=== PATIENT | female | born 1960 | race African-American/Black ===

== ENCOUNTER 2019-02-23 14:54 | Emergency (ER) | payer MEDICARE, MEDICAID ==
[~2019-02-23] VITALS: Ht 167.6 cm; Wt 79.0 kg
[~2019-02-23 14:54] MED LIST: AMIT25TA9 PO; AMLO10TA80 PO; AMLO2.5T2 PO; ATOR20TA65 PO; CARV3.1242 PO; CIPR-263 PO; COR3 PO; DIGO250T4 PO; ESOM20CA PO; HYDR12.529 PO; LISI2.5T47 PO; LISI40TA4 PO; OMEP20TA2 PO; OXYC30TA89 PO; PERFORMIST
[2019-02-23] MEDS ORDERED: IBUPROFEN 600MG TABLET PO STA (15:14)
[2019-02-23] MEDS ORDERED: ALBUTEROL (0.083%) 2.5MG/3ML NEB HHN ONE (15:15)
[2019-02-23] MEDS ORDERED: ALBUTEROL (0.083%) 2.5MG/3ML NEB ONE (15:29)
[2019-02-23 16:06] LABS: EOSINOPHILS % 2.8 % (0.0-5.0); HEMATOCRIT. 40.7 % (36.0-48.0); LYMPHOCYTES % 39.1 % (20.0-50.0); MEAN CORPUSCULAR HEMOGLOBIN 28.5 pg (28.0-32.0); MEAN CORPUSCULAR VOLUME 82.8 fL (81.0-99.0); MEAN PLATELET VOLUME 8.5 fl (7.4-10.4); NEUTROPHILS % 46.1 % (40.0-76.0); PLATELET 254 x1000/uL (130-400); RED BLOOD CELL COUNT 4.92 mill/uL (4.2-5.4)
[2019-02-23 16:12] LABS: CHLORIDE 103 mEq/L (98-107)
[2019-02-23] MEDS ORDERED: POTASSIUM CHLORIDE 20MEQ TABLET SR PO ONE ×2 (16:30→16:45)
[2019-02-23 16:54] VITALS: BP 168/88
[2019-02-24] MEDS ORDERED: FLUT1AER IH (14:02)
[2019-02-24] MEDS ORDERED: SPIR1TAB4 MT (14:02)
[2019-02-24] MEDS ORDERED: COLC0.6C3 MT (14:02)
[2019-02-24] MEDS ORDERED: VERA120T13 MT (14:02)
[2019-02-24] MEDS ORDERED: ESCI20TA36 MT (14:02)
[2019-02-24] MEDS ORDERED: MECL-127 MT (14:02)
[2019-02-24] MEDS ORDERED: ACLI400A3 INH (14:02)
[2019-02-24] MEDS ORDERED: OLME1TAB40 MT (14:02)
[2019-02-24] MEDS ORDERED: CYCL15CA PO (14:02)
[2019-02-24] MEDS ORDERED: FURO20TA4 MT (14:02)
== END 2019-02-23 17:26 | disposition home or self-care (01) ==
LOC: ER 14:54
DX: J44.9 Chronic obstructive pulmonary disease, unspecified (principal); R51 Headache; E87.6 Hypokalemia; I11.0 Hypertensive heart disease with heart failure; I50.9 Heart failure, unspecified; Z79.899 Other long term (current) drug therapy; Z88.0 Allergy status to penicillin; Z88.1 Allergy status to other antibiotic agents
CPT/HCPCS: 36415; 71045; 80053; 85025; 93005; 94640; 99284; J7611

== ENCOUNTER 2019-03-13 18:27 | Emergency (ER) | payer MEDICARE, MEDICAID ==
[~2019-03-13] VITALS: Ht 172.7 cm; Wt 100.0 kg
[~2019-03-13 18:27] MED LIST changes: +ACLI400A3 INH; -AMLO2.5T2 PO; -CARV3.1242 PO; -CIPR-263 PO; +COLC0.6C3 MT; +CYCL15CA PO; -DIGO250T4 PO; +ESCI20TA36 MT; -ESOM20CA PO; +FLUT1AER IH; +FURO20TA4 MT; -HYDR12.529 PO; -LISI40TA4 PO; +MECL-127 MT; +OLME1TAB40 MT; +SPIR1TAB4 MT; +VERA120T13 MT
[2019-03-13] MEDS ORDERED: PREDNISONE 20MG TABLET PO STA (19:44)
[2019-03-13] MEDS ORDERED: IPRATROPIUM BROMIDE (0.02%) 0.5MG/2.5ML NEB HHN STA (19:44)
[2019-03-13] MEDS ORDERED: ALBUTEROL (0.083%) 2.5MG/3ML NEB HHN STA (19:44)
[2019-03-13 20:07] LABS: BASOPHILS % 1.5 % (0.0-2.0); EOSINOPHILS % 3.3 % (0.0-5.0); HEMATOCRIT. 37.9 % (36.0-48.0); HEMOGLOBIN. 12.8 g/dL (12.0-16.0); LYMPHOCYTES % 31.9 % (20.0-50.0); MEAN CORPUSCULAR HEMOGLOBIN 27.7 pg (28.0-32.0); MEAN CORPUSCULAR VOLUME 82.3 fL (81.0-99.0); MEAN PLATELET VOLUME 8.5 fl (7.4-10.4); MONOCYTES % 6.7 % (2.0-8.0); NEUTROPHILS % 56.6 % (40.0-76.0); PLATELET 220 x1000/uL (130-400); RED BLOOD CELL COUNT 4.61 mill/uL (4.2-5.4); RED CELL DISTRIBUTION WIDTH 14.8 % (11.6-14.6)
[2019-03-13 20:12] LABS: CHLORIDE 105 mEq/L (98-107)
[2019-03-14 00:35] VITALS: BP 154/90
== END 2019-03-14 01:17 | disposition home or self-care (01) ==
LOC: ER 18:27
DX: J44.1 Chronic obstructive pulmonary disease with (acute) exacerbation (principal); E11.9 Type 2 diabetes mellitus without complications; I10 Essential (primary) hypertension; Z88.0 Allergy status to penicillin; Z88.3 Allergy status to other anti-infective agents
CPT/HCPCS: 36415; 71045; 80053; 83880; 84484; 85025; 93005; 94640; 99284; J7512; J7611

== ENCOUNTER 2019-03-21 11:05 | Inpatient (IN) | payer MEDICARE, MEDICAID ==
[~2019-03-21] VITALS: Ht 167.6 cm; Wt 104.5 kg
[2019-03-21] MEDS ORDERED: IPRATROPIUM BROMIDE (0.02%) 0.5MG/2.5ML NEB HHN STA (11:18)
[2019-03-21] MEDS ORDERED: MAGNESIUM 2 G PREMIX 50 ML IV STA (11:18)
[2019-03-21] MEDS ORDERED: METHYLPREDNISOLONE SOD SUCC 125 MG/2 ML VIAL IV STA (11:18)
[2019-03-21] MEDS ORDERED: ALBUTEROL (0.083%) 2.5MG/3ML NEB HHN STA (11:18)
[2019-03-21] MEDS ORDERED: FUROSEMIDE 20MG/2ML VIAL IVP ONE (11:30)
[2019-03-21 12:04] LABS: CHLORIDE 104 mEq/L (98-107)
[2019-03-21 12:05] LABS: BASOPHILS % 0.8 % (0.0-2.0); EOSINOPHILS % 7.4 % (0.0-5.0); HEMATOCRIT. 38.7 % (36.0-48.0); HEMOGLOBIN. 13.1 g/dL (12.0-16.0); LYMPHOCYTES % 30.3 % (20.0-50.0); MEAN CORPUSCULAR HEMOGLOBIN 27.9 pg (28.0-32.0); MEAN CORPUSCULAR VOLUME 82.2 fL (81.0-99.0); MEAN PLATELET VOLUME 8.7 fl (7.4-10.4); MONOCYTES % 8.4 % (2.0-8.0); NEUTROPHILS % 53.1 % (40.0-76.0); PLATELET 230 x1000/uL (130-400); PROTHROMBIN TIME 10.2 sec (9.6-11.0); RED CELL DISTRIBUTION WIDTH 14.6 % (11.6-14.6)
[2019-03-21] MEDS ORDERED: POTASSIUM CHLORIDE 20MEQ TABLET SR PO ONE (12:30)
[2019-03-21 14:14] LABS: CLARITY URINE CLEAR (CLEAR); COLOR URINE YELLOW (YELLOW); KETONES URINE NEGATIVE (NEGATIVE); LEUKOCYTE ESTERASE URINE NEGATIVE (NEGATIVE); NITRITE URINE NEGATIVE (NEGATIVE); OCCULT BLOOD URINE NEGATIVE (NEGATIVE); PH URINE 6.5 (4.5-8.0); PROTEIN URINE NEGATIVE (NEGATIVE); SPECIFIC GRAVITY URINE 1.004 (1.005-1.030)
[2019-03-21] MEDS ORDERED: MAGNESIUM/ALUMINUM HYDROXIDE/SIMETHICONE 30ML UDC PO PRN (14:30)
[2019-03-21] MEDS ORDERED: DOCUSATE SODIUM 100MG CAPSULE PO PRN (14:30)
[2019-03-21] MEDS ORDERED: HYDROCODONE/ACETAMINOPHEN 5/325MG TABLET PO PRN (14:30)
[2019-03-21] MEDS ORDERED: CLONIDINE 0.1MG TABLET PO PRN (14:30)
[2019-03-21] MEDS ORDERED: GUAIFENESIN 200MG/10ML SUGAR FREE UDC PO PRN (14:30)
[2019-03-21] MEDS ORDERED: ACETAMINOPHEN 325MG TABLET PO PRN (14:30)
[2019-03-21] MEDS ORDERED: ONDANSETRON HCL 4MG/2ML INJ IV PRN (14:30)
[2019-03-21] MEDS ORDERED: IPRATROPIUM/ALBUTEROL 0.5-3(2.5)MG/3ML NEB NEB PRN (14:30)
[2019-03-21] MEDS: MORPHINE SULFATE 2 MG/ML CPJ (NOT FOR IM USE) IV PRN ×2 (16:21→23:20)
[2019-03-21 16:30] VITALS: BP 114/87
[2019-03-21] MEDS ORDERED: LEVOFLOXACIN 500MG PREMIX 100 ML IV SCH ×2 (16:30→18:00)
[2019-03-21] MEDS: ENOXAPARIN 30MG/0.3ML SYR SUBCUT SCH (17:00)
[2019-03-21 17:30] VITALS: BP 114/87
[2019-03-21] MEDS: METHYLPREDNISOLONE SOD SUCC 125 MG/2 ML VIAL IV SCH ×2 (17:44→22:25)
[2019-03-21] MEDS ORDERED: AMIT25TA9 PO (18:19)
[2019-03-21] MEDS ORDERED: FLUT9.9S BOTHNSTRLS (18:25)
[2019-03-21 20:00] VITALS: BP 158/73
[2019-03-21] MEDS: IPRATROPIUM/ALBUTEROL 0.5-3(2.5)MG/3ML NEB NEB SCH (22:24)
[2019-03-21] MEDS: CARVEDILOL 3.125 MG TABLET PO SCH (22:25)
[2019-03-22] VITALS: BP 151/70
[2019-03-22] MEDS: IPRATROPIUM/ALBUTEROL 0.5-3(2.5)MG/3ML NEB NEB SCH ×5 (01:39→20:23)
[2019-03-22] MEDS: METHYLPREDNISOLONE SOD SUCC 125 MG/2 ML VIAL IV SCH ×2 (03:57→11:33)
[2019-03-22 04:00] VITALS: BP 165/82
[2019-03-22] MEDS: MORPHINE SULFATE 2 MG/ML CPJ (NOT FOR IM USE) IV PRN (04:06)
[2019-03-22] MEDS: ENOXAPARIN 30MG/0.3ML SYR SUBCUT SCH ×2 (04:07→17:31)
[2019-03-22 07:26] LABS: CHLORIDE 102 mEq/L (98-107)
[2019-03-22 07:36] LABS: HEMATOCRIT. 38.6 % (36.0-48.0); HEMOGLOBIN. 13.1 g/dL (12.0-16.0); MEAN CORPUSCULAR HEMOGLOBIN 28.1 pg (28.0-32.0); MEAN CORPUSCULAR VOLUME 82.7 fL (81.0-99.0); MEAN PLATELET VOLUME 9.6 fl (7.4-10.4); PLATELET 227 x1000/uL (130-400); RED BLOOD CELL COUNT 4.67 mill/uL (4.2-5.4)
[2019-03-22 07:43] LABS: LDL CHOLESTEROL 119 mg/dL (5-100)
[2019-03-22 07:45] LABS: HDL CHOLESTEROL 59 mg/dL (40-59)
[2019-03-22 08:00] VITALS: BP 176/82
[2019-03-22 08:45] LABS: BG BASE EXCESS 2.6 mmol/L (-2.0-2.0); BG CARBOXYHEMOGLOBIN 0.2 % (0.5-1.5); BG DEOXYHEMOGLOBIN 4.8 % (0.0-5.0); BG FRACTION INSPIRED OXYGEN 21; BG METHEMOGLOBIN 0.2 % (0.0-1.5); BG OXYGEN SATURATION 95.2 % (92.0-98.5); BG OXYHEMOGLOBIN 94.8 % (94.0-97.0); BG PCO2 40.7 mmHg (35.0-45.0); BG PH 7.439 (7.350-7.450); BG PO2 74.6 mmHg (75.0-100.0); BG SAMPLE SITE RIGHT RADIAL; BG TOTAL HEMOGLOBIN 13.5 g/dL (12.0-18.0); BG VENT MODE ROOM AIR
[2019-03-22] MEDS: FUROSEMIDE 20MG TABLET PO SCH (09:13)
[2019-03-22] MEDS: CARVEDILOL 3.125 MG TABLET PO SCH ×2 (09:13→20:50)
[2019-03-22] MEDS: LISINOPRIL 10MG TABLET PO SCH (09:13)
[2019-03-22] MEDS: ASPIRIN 81MG EC TABLET PO SCH (09:13)
[2019-03-22] MEDS ORDERED: FUROSEMIDE 20MG TABLET PO SCH (11:30)
[2019-03-22] MEDS ORDERED: CARVEDILOL 3.125 MG TABLET PO SCH (11:30)
[2019-03-22 12:00] VITALS: BP 162/97
[2019-03-22] MEDS: OMEPRAZOLE 20MG CAPSULE EXTENDED RELEASE PO SCH (12:49)
[2019-03-22] MEDS: ATORVASTATIN CALCIUM 20MG TABLET PO SCH (12:50)
[2019-03-22] MEDS: AMLODIPINE 10MG TABLET PO SCH (12:50)
[2019-03-22] MEDS: AMITRIPTYLINE 25MG TABLET PO SCH ×2 (13:00→21:40)
[2019-03-22 16:00] VITALS: BP 165/87
[2019-03-22] MEDS ORDERED: KETOROLAC 30MG/ML VIAL IV PRN (16:45)
[2019-03-22] MEDS: METHYLPREDNISOLONE SOD SUCC 40 MG/ML VIAL IV SCH (17:32)
[2019-03-22] MEDS: LEVOFLOXACIN 500MG PREMIX 100 ML IV SCH (18:07)
[2019-03-22 19:44] LABS: PLATELET ESTIMATE NORMAL
[2019-03-22 20:00] VITALS: BP 156/86
[2019-03-22] MEDS: BUDESONIDE 0.5MG/2ML NEB HHN SCH (20:23)
[2019-03-22] MEDS: CITALOPRAM HYDROBROMIDE 10MG TABLET PO SCH (20:51)
[2019-03-23] VITALS: BP 161/76
[2019-03-23] MEDS: IPRATROPIUM/ALBUTEROL 0.5-3(2.5)MG/3ML NEB NEB SCH ×4 (02:28→21:21)
[2019-03-23 04:00] VITALS: BP 151/84
[2019-03-23] MEDS: ENOXAPARIN 30MG/0.3ML SYR SUBCUT SCH ×2 (05:08→17:52)
[2019-03-23] MEDS: METHYLPREDNISOLONE SOD SUCC 40 MG/ML VIAL IV SCH ×2 (05:09→10:32)
[2019-03-23] MEDS: OMEPRAZOLE 20MG CAPSULE EXTENDED RELEASE PO SCH (06:37)
[2019-03-23] MEDS: MORPHINE SULFATE 2 MG/ML CPJ (NOT FOR IM USE) IV PRN (06:53)
[2019-03-23 08:00] VITALS: BP 161/92
[2019-03-23] MEDS: BUDESONIDE 0.5MG/2ML NEB HHN SCH ×2 (08:20→21:22)
[2019-03-23] MEDS: ATORVASTATIN CALCIUM 20MG TABLET PO SCH (08:36)
[2019-03-23] MEDS: ASPIRIN 81MG EC TABLET PO SCH (08:36)
[2019-03-23] MEDS: CARVEDILOL 3.125 MG TABLET PO SCH (08:37)
[2019-03-23] MEDS: AMLODIPINE 10MG TABLET PO SCH (08:37)
[2019-03-23] MEDS: LISINOPRIL 10MG TABLET PO SCH (08:37)
[2019-03-23] MEDS: FUROSEMIDE 20MG TABLET PO SCH (08:37)
[2019-03-23 12:00] VITALS: BP 157/88
[2019-03-23 16:00] VITALS: BP 137/80
[2019-03-23] MEDS: METHYLPREDNISOLONE SOD SUCC 125 MG/2 ML VIAL IV SCH (17:51)
[2019-03-23] MEDS: LEVOFLOXACIN 500MG PREMIX 100 ML IV SCH (17:52)
[2019-03-23 20:00] VITALS: BP 153/79
[2019-03-23] MEDS: FAMOTIDINE 20MG TABLET PO SCH (21:15)
[2019-03-23] MEDS: CITALOPRAM HYDROBROMIDE 10MG TABLET PO SCH (21:15)
[2019-03-23] MEDS: AMITRIPTYLINE 25MG TABLET PO SCH (21:16)
[2019-03-24] VITALS: BP 149/78
[2019-03-24] MEDS: IPRATROPIUM/ALBUTEROL 0.5-3(2.5)MG/3ML NEB NEB SCH ×2 (01:35→09:39)
[2019-03-24] MEDS: METHYLPREDNISOLONE SOD SUCC 125 MG/2 ML VIAL IV SCH ×2 (01:41→09:11)
[2019-03-24 04:00] VITALS: BP 140/72
[2019-03-24] MEDS: ENOXAPARIN 30MG/0.3ML SYR SUBCUT SCH (05:28)
[2019-03-24 08:00] VITALS: BP 168/88
[2019-03-24] MEDS ORDERED: LISINOPRIL 10MG TABLET PO SCH (09:00)
[2019-03-24] MEDS: AMLODIPINE 10MG TABLET PO SCH (09:10)
[2019-03-24] MEDS: ASPIRIN 81MG EC TABLET PO SCH (09:10)
[2019-03-24] MEDS: FUROSEMIDE 20MG TABLET PO SCH (09:10)
[2019-03-24] MEDS: ATORVASTATIN CALCIUM 20MG TABLET PO SCH (09:10)
[2019-03-24] MEDS: FAMOTIDINE 20MG TABLET PO SCH (09:10)
[2019-03-24] MEDS: BUDESONIDE 0.5MG/2ML NEB HHN SCH (09:39)
[2019-03-24 10:56] VITALS: BP 156/85
[2019-03-24 12:00] VITALS: BP 156/85
[2019-03-24 13:25] VITALS: BP 156/85
== END 2019-03-24 14:35 | disposition home or self-care (01) | DRG 193 ==
LOC: ER 11:05 → 5WST 12:22 → EDBEDREQTM 12:24 → EDBEDREQ 12:24 → ENRESERV 14:01
PROVIDERS: ADMIT Hospitalist; ATTEND Hospitalist
DX: J18.9 Pneumonia, unspecified organism (principal); J96.00 Acute respiratory failure, unspecified whether with hypoxia or hypercapnia; J44.1 Chronic obstructive pulmonary disease with (acute) exacerbation; J44.0 Chronic obstructive pulmonary disease with (acute) lower respiratory infection; I31.3 Pericardial effusion (noninflammatory); I42.9 Cardiomyopathy, unspecified; I50.42 Chronic combined systolic (congestive) and diastolic (congestive) heart failure; I11.0 Hypertensive heart disease with heart failure; E66.9 Obesity, unspecified; D63.8 Anemia in other chronic diseases classified elsewhere; E87.6 Hypokalemia; G89.4 Chronic pain syndrome; I34.0 Nonrheumatic mitral (valve) insufficiency; E78.5 Hyperlipidemia, unspecified; I50.9 Heart failure, unspecified; M51.9 Unspecified thoracic, thoracolumbar and lumbosacral intervertebral disc disorder; Z77.120 Contact with and (suspected) exposure to mold (toxic); Z68.37 Body mass index [BMI] 37.0-37.9, adult; Z79.899 Other long term (current) drug therapy; Z88.8 Allergy status to other drugs, medicaments and biological substances; Z88.0 Allergy status to penicillin; Z87.891 Personal history of nicotine dependence
CPT/HCPCS: 36415; 36600; 71045; 80061; 81003; 82375; 82805; 83605; 83880; 84145; 84484; 93005; 93306; 93970; 94640; 99291; J1650; J1940; J1956; J2270; J2920; J2930; J3475; J7611; J7620; J7626

== ENCOUNTER 2020-02-03 14:09 | Inpatient (IN) | payer MEDICARE, MEDICAID ==
[~2020-02-03] VITALS: Ht 167.6 cm; Wt 86.2 kg
[~2020-02-03 14:09] MED LIST changes: -ESCI20TA36 MT; +ESCI20TA43 MT; -FLUT1AER IH; +FLUT9.9S BOTHNSTRLS; -LISI2.5T47 PO; -OLME1TAB40 MT; +OLME1TAB82 MT; -PERFORMIST
[2020-02-03] MEDS ORDERED: MORPHINE SULFATE 4 MG/ML CPJ (NOT FOR IM USE) IV STA (15:29)
[2020-02-03] MEDS ORDERED: ONDANSETRON HCL 4MG/2ML INJ IV STA (15:29)
[2020-02-03] MEDS ORDERED: SODIUM CHLORIDE 0.9% 1,000 ML IV ONE (15:29)
[2020-02-03 15:56] LABS: BASOPHILS % 0.7 % (0.0-2.0); EOSINOPHILS % 3.3 % (0.0-5.0); HEMATOCRIT. 33.4 % (36.0-48.0); HEMOGLOBIN. 11.1 g/dL (12.0-16.0); LYMPHOCYTES % 23.2 % (20.0-50.0); MEAN CORPUSCULAR HEMOGLOBIN 26.9 pg (28.0-32.0); MEAN CORPUSCULAR VOLUME 81.1 fL (81.0-99.0); MEAN PLATELET VOLUME 7.7 fl (7.4-10.4); NEUTROPHILS % 63.8 % (40.0-76.0); PLATELET 300 x1000/uL (130-400); RED BLOOD CELL COUNT 4.13 mill/uL (4.2-5.4); RED CELL DISTRIBUTION WIDTH 17.5 % (11.6-14.6)
[2020-02-03 16:03] LABS: CHLORIDE 103 mEq/L (98-107)
[2020-02-03 16:07] LABS: PARTIAL THROMBOPLASTIN TIME 25.8 sec (23.4-31.0); PROTHROMBIN TIME 10.8 sec (9.6-11.0)
[2020-02-03] MEDS ORDERED: ASPIRIN 325MG EC TABLET PO ONE (16:45)
[2020-02-03] MEDS ORDERED: IPRATROPIUM/ALBUTEROL 0.5-3(2.5)MG/3ML NEB NEB PRN (17:30)
[2020-02-03] MEDS ORDERED: CLONIDINE 0.1MG TABLET PO PRN (17:30)
[2020-02-03] MEDS ORDERED: MAGNESIUM/ALUMINUM HYDROXIDE/SIMETHICONE 30ML UDC PO PRN (17:30)
[2020-02-03] MEDS ORDERED: LORAZEPAM 0.5MG TABLET PO PRN (17:30)
[2020-02-03] MEDS ORDERED: ACETAMINOPHEN 325MG TABLET PO PRN ×2 (17:30)
[2020-02-03] MEDS ORDERED: NITROGLYCERIN 0.4MG TABLET SL SL PRN (17:30)
[2020-02-03] MEDS ORDERED: GUAIFENESIN 200MG/10ML SUGAR FREE UDC PO PRN (17:30)
[2020-02-03] MEDS ORDERED: DOCUSATE SODIUM 100MG CAPSULE PO PRN (17:30)
[2020-02-03] MEDS ORDERED: ONDANSETRON HCL 4MG/2ML INJ IV PRN (17:30)
[2020-02-03] MEDS ORDERED: ZOLPIDEM TARTRATE 5MG TABLET PO PRN (17:30)
[2020-02-03] MEDS: AMLODIPINE 10MG TABLET PO SCH (17:30)
[2020-02-03] MEDS ORDERED: DEXTROSE 50% WATER 50ML SYRINGE IV PRN (17:45)
[2020-02-03] MEDS ORDERED: ENOXAPARIN 40MG/0.4ML SYR SUBCUT SCH (18:00)
[2020-02-03] MEDS: INSULIN LISPRO 100 UNITS/ML SUBCUT SCH ×2 (18:20→21:00)
[2020-02-03 19:25] LABS: FOLIC ACID (FOLATE) SERUM >20 ng/mL ng/mL (>5.38)
[2020-02-03 19:37] LABS: VITAMIN B12 SERUM 502 pg/mL (211-911)
[2020-02-03] MEDS: CARVEDILOL 3.125 MG TABLET PO SCH (21:00)
[2020-02-03] MEDS: BLOOD SUGAR DIAGNOSTIC STRIP TEST SCH (21:00)
[2020-02-03] MEDS: ASCORBIC ACID 500 MG TABLET PO SCH (22:11)
[2020-02-03] MEDS: GUAIFENESIN/DM 600MG/30MG ER TAB 12HR PO SCH (22:11)
[2020-02-03] MEDS: FAMOTIDINE 20MG TABLET PO SCH (22:11)
[2020-02-03 23:00] VITALS: BP 150/88
[2020-02-04] VITALS: BP 120/78
[2020-02-04 00:04] LABS: CREATINE KINASE 216 IU/L (26-192); CREATINE KINASE MB FRACTION < 1.0 ng/mL (0.5-3.6)
[2020-02-04] MEDS ORDERED: PNEUMOCOCCAL 23-VAL P-SAC VAC 0.5 ML IM ONE (00:15)
[2020-02-04] MEDS: KETOROLAC 15MG/ML VIAL IV PRN ×2 (00:32→09:03)
[2020-02-04 04:00] VITALS: BP 149/93
[2020-02-04 06:42] LABS: CREATINE KINASE 199 IU/L (26-192); CREATINE KINASE MB FRACTION < 1.0 ng/mL (0.5-3.6)
[2020-02-04] MEDS: BLOOD SUGAR DIAGNOSTIC STRIP TEST SCH ×2 (07:18→12:27)
[2020-02-04] MEDS: INSULIN LISPRO 100 UNITS/ML SUBCUT SCH ×2 (07:18→12:27)
[2020-02-04 08:00] VITALS: BP 158/80
[2020-02-04] MEDS ORDERED: ZINC SULFATE 220 MG ( 50 ) CAPSULE PO SCH (09:00)
[2020-02-04] MEDS ORDERED: ASPIRIN 325MG EC TABLET PO SCH (09:00)
[2020-02-04] MEDS: GUAIFENESIN/DM 600MG/30MG ER TAB 12HR PO SCH (09:03)
[2020-02-04] MEDS: AMLODIPINE 10MG TABLET PO SCH (09:04)
[2020-02-04] MEDS: CARVEDILOL 3.125 MG TABLET PO SCH (09:04)
[2020-02-04] MEDS: FAMOTIDINE 20MG TABLET PO SCH (09:04)
[2020-02-04] MEDS: ASCORBIC ACID 500 MG TABLET PO SCH (09:56)
[2020-02-04 12:00] VITALS: BP 156/81
[2020-02-04] MEDS: TRAMADOL 50MG TABLET PO PRN ×2 (12:27→12:34)
[2020-02-04 12:36] VITALS: BP 156/81
== END 2020-02-04 13:45 | disposition home or self-care (01) | DRG 191 ==
LOC: ER 14:09 → 6WST 17:23 → SUPCPDRO 17:27 → ENRESERV 19:51
PROVIDERS: ADMIT Internal Medicine; ATTEND Internal Medicine
DX: J44.1 Chronic obstructive pulmonary disease with (acute) exacerbation (principal); M62.82 Rhabdomyolysis; R55 Syncope and collapse; M19.011 Primary osteoarthritis, right shoulder; K21.9 Gastro-esophageal reflux disease without esophagitis; D63.8 Anemia in other chronic diseases classified elsewhere; E11.9 Type 2 diabetes mellitus without complications; E66.9 Obesity, unspecified; I11.0 Hypertensive heart disease with heart failure; I50.9 Heart failure, unspecified; Z87.891 Personal history of nicotine dependence; Z68.30 Body mass index [BMI] 30.0-30.9, adult; Z88.0 Allergy status to penicillin; Z88.8 Allergy status to other drugs, medicaments and biological substances; Z79.899 Other long term (current) drug therapy
CPT/HCPCS: 36415; 71045; 73030; 80053; 80061; 82550; 82553; 82607; 82746; 82962; 83036; 83540; 83550; 83880; 84484; 85025; 90732; 93005; 93306; 99285; J1650; J1885; J2270; J2405; J7030

== ENCOUNTER 2021-04-05 18:54 | Emergency (ER) | payer MEDICARE, MEDICAID ==
[~2021-04-05] VITALS: Ht 175.3 cm; Wt 109.0 kg
[~2021-04-05 18:54] MED LIST changes: +ALBU18HF2 IH; -AMIT25TA9 PO; -AMLO10TA80 PO; +CARSR60 PO; -COLC0.6C3 MT; +COR12 PO; -COR3 PO; -CYCL15CA PO; +CYCL25PO15 MT; +DEXL60CA3 PO; +DOXA4TAB3 PO; +ESCI-7 PO; -ESCI20TA43 MT; +FLUT1BLS IH; -FLUT9.9S BOTHNSTRLS; -FURO20TA4 MT; +FURO20TA4 PO; +HYDR25TA PO; -MECL-127 MT; +MECL-127 PO; +METF-416 PO; +MYCO500T PO; -OLME1TAB82 MT; -OMEP20TA2 PO; +OXYC-582 PO; -OXYC30TA89 PO; +POTA-189 PO; +PRED10TA PO; -SPIR1TAB4 MT; +TC025C15 TOP; -VERA120T13 MT
[2021-04-05] MEDS ORDERED: CYCLOBENZAPRINE 10MG TABLET PO ONE (20:30)
[2021-04-05] MEDS ORDERED: IBUPROFEN 800MG TABLET PO ONE (20:30)
[2021-04-05 21:40] VITALS: BP 125/64
== END 2021-04-05 21:40 | disposition home or self-care (01) ==
LOC: ER 18:54
DX: M62.830 Muscle spasm of back (principal); V49.59XA Passenger injured in collision with other motor vehicles in traffic accident, initial encounter; Y93.89 Activity, other specified; Y92.89 Other specified places as the place of occurrence of the external cause; Y99.8 Other external cause status; J44.9 Chronic obstructive pulmonary disease, unspecified; I10 Essential (primary) hypertension; Z88.0 Allergy status to penicillin
CPT/HCPCS: 72100; 99283

== ENCOUNTER 2024-08-03 20:38 | Inpatient (IN) | payer MEDICARE, MEDICAID ==
[~2024-08-03] VITALS: Ht 167.6 cm; Wt 115.7 kg
[~2024-08-03 20:38] MED LIST changes: +ACLI400A2 INH; -ACLI400A3 INH
[2024-08-03] MEDS: METHYLPREDNISOLONE SOD SUCC 125MG/2ML (ACT-O-VIAL) IV STA (22:00)
[2024-08-04] VITALS (9 sets, daily range): BP systolic 138–205; BP diastolic 75–124; PULSE 78–104; RESP 18–20; TEMP 36.16956–36.55848; O2SAT 95–100
[2024-08-04 02:06] LABS: BASOPHILS % 0.2 % (0.0-2.0); DIFFERENTIAL COMMENT 0; EOSINOPHILS % 0.2 % (0.0-5.0); HEMATOCRIT. 41.8 % (36.0-48.0); LYMPHOCYTES % 12.8 % (20.0-50.0); MEAN CORPUSCULAR HEMOGLOBIN 28.1 pg (28.0-32.0); MEAN CORPUSCULAR HGB CONC 33.5 g/dL (31.0-37.0); MEAN CORPUSCULAR VOLUME 83.9 fL (81.0-99.0); MEAN PLATELET VOLUME 9.2 fl (7.4-10.4); NEUTROPHILS % 85.8 % (40.0-76.0); PLATELET 220 x1000/uL (130-400); RED BLOOD CELL COUNT 4.98 mill/uL (4.2-5.4); RED CELL DISTRIBUTION WIDTH 14.9 % (11.6-14.6); WHITE BLOOD COUNT 8.1 x1000/uL (4.5-11.0)
[2024-08-04] MEDS: IPRATROPIUM BROMIDE (0.02%) 0.5MG/2.5ML NEB HHN STA (02:20)
[2024-08-04] MEDS: ALBUTEROL (0.083%) 2.5MG/3ML NEB HHN STA (02:22)
[2024-08-04 03:04] LABS: CARBON DIOXIDE 27 mEq/L (21-32); CHLORIDE 105 mEq/L (98-107); POTASSIUM 3.5 mEq/L (3.5-5.1); SODIUM 142 mEq/L (136-145)
[2024-08-04 03:05] LABS: CALCIUM 9.5 mg/dL (8.7-10.4)
[2024-08-04 03:10] LABS: CREATININE 1.2 mg/dL (0.6-1.0); GLUCOSE 194 mg/dL (70-105); UREA NITROGEN BLOOD 16 mg/dL (9-23)
[2024-08-04 03:21] LABS: TROPONIN I HIGH SENSITIVITY 37 ng/L (3.0-34)
[2024-08-04] MEDS ORDERED: CYCL10TA21 MT (03:54)
[2024-08-04] MEDS ORDERED: FINE10TA MT (03:54)
[2024-08-04] MEDS ORDERED: SACU1TAB4 MT (03:54)
[2024-08-04] MEDS ORDERED: HYDR25TA78 MT (03:54)
[2024-08-04] MEDS ORDERED: FLUT16SP15 (03:54)
[2024-08-04] MEDS ORDERED: HYDR453.3 TP (03:54)
[2024-08-04] MEDS ORDERED: ALBU18HF2 IH (03:54)
[2024-08-04] MEDS ORDERED: VERQUVO MT (03:54)
[2024-08-04] MEDS ORDERED: MAGN400T7 MT (03:54)
[2024-08-04] MEDS ORDERED: CARV25TA47 MT (03:54)
[2024-08-04] MEDS ORDERED: GABA-1180 MT (03:54)
[2024-08-04] MEDS ORDERED: OXYC-582 MT (03:54)
[2024-08-04] MEDS ORDERED: DAPA10TA MT (03:54)
[2024-08-04] MEDS ORDERED: ATOR40TA70 MT (03:54)
[2024-08-04] MEDS ORDERED: OMEP1CAP MT (03:54)
[2024-08-04] MEDS ORDERED: BACL-141 MT (03:54)
[2024-08-04] MEDS ORDERED: DEXTROSE 50% WATER 50ML SYRINGE IV PRN (04:15)
[2024-08-04] MEDS ORDERED: OXYCODONE HCL 5MG TABLET PO PRN (04:30)
[2024-08-04] MEDS: HYDRALAZINE HCL 50MG TABLET PO SCH (05:26)
[2024-08-04] MEDS: BLOOD SUGAR DIAGNOSTIC STRIP TEST SCH (05:28)
[2024-08-04] MEDS: INSULIN LISPRO 100 UNITS/ML SUBCUT SCH (08:10)
[2024-08-04] MEDS ORDERED: MEDICATION NOT ON FORMULARY EA (Dapagliflozin Propanediol (Farxiga) 1 TAB) MT SCH (09:00)
[2024-08-04] MEDS ORDERED: MEDICATION NOT ON FORMULARY EA (Sacubitril/Valsartan (Entresto 97 mg-103 mg Tablet) 1 TA MT SCH (09:00)
[2024-08-04] MEDS: ATORVASTATIN CALCIUM 40MG TABLET PO SCH (09:06)
[2024-08-04] MEDS: MAGNESIUM OXIDE 400MG TABLET PO SCH (09:07)
[2024-08-04] MEDS: CARVEDILOL 12.5MG TABLET PO SCH (09:08)
[2024-08-04] MEDS: BACLOFEN 10MG TABLET PO SCH (09:08)
[2024-08-04] MEDS: PANTOPRAZOLE 40MG DR TABLET PO SCH (09:08)
[2024-08-04] MEDS: AMLODIPINE 10MG TABLET PO SCH (09:08)
[2024-08-04] MEDS: ENOXAPARIN 30MG/0.3ML SYR SUBCUT SCH (09:09)
[2024-08-04 12:26] LABS: BASOPHILS % 0.6 % (0.0-2.0); HEMATOCRIT. 44.8 % (36.0-48.0); HEMOGLOBIN. 14.5 g/dL (12.0-16.0); LYMPHOCYTES % 14.5 % (20.0-50.0); MEAN CORPUSCULAR HEMOGLOBIN 27.3 pg (28.0-32.0); MEAN CORPUSCULAR HGB CONC 32.4 g/dL (31.0-37.0); MEAN CORPUSCULAR VOLUME 84.3 fL (81.0-99.0); MEAN PLATELET VOLUME 10.1 fl (7.4-10.4); MONOCYTES % 1.5 % (2.0-8.0); NEUTROPHILS % 83.4 % (40.0-76.0); PLATELET 231 x1000/uL (130-400); RED BLOOD CELL COUNT 5.31 mill/uL (4.2-5.4); RED CELL DISTRIBUTION WIDTH 14.6 % (11.6-14.6); WHITE BLOOD COUNT 6.8 x1000/uL (4.5-11.0)
[2024-08-04 12:33] LABS: CHLORIDE 104 mEq/L (98-107); POTASSIUM 3.4 mEq/L (3.5-5.1); SODIUM 140 mEq/L (136-145)
[2024-08-04 12:34] LABS: CARBON DIOXIDE 26 mEq/L (21-32)
[2024-08-04 12:35] LABS: CALCIUM 9.8 mg/dL (8.7-10.4)
[2024-08-04 12:36] LABS: TROPONIN I HIGH SENSITIVITY 33 ng/L (3.0-34)
[2024-08-04 12:39] LABS: CREATININE 1.2 mg/dL (0.6-1.0); GLUCOSE 208 mg/dL (70-105); UREA NITROGEN BLOOD 14 mg/dL (9-23)
[2024-08-04 12:41] LABS: ALANINE AMINOTRANSFERASE 13 IU/L (10-49); ALBUMIN 4.7 g/dL (3.2-4.8); ASPARTATE AMINOTRANSFERASE 14 IU/L (<34)
[2024-08-04 12:42] LABS: BILIRUBIN TOTAL 0.4 mg/dL (0.1-1.0); PROTEIN TOTAL 8.1 g/dL (6.0-8.3)
[2024-08-04] MEDS: POTASSIUM CHLORIDE 20MEQ TABLET SR PO NR (16:00)
[2024-08-04] MEDS: METHYLPREDNISOLONE SOD SUCC 40MG/ML (ACT-O-VIAL) IV SCH (16:03)
[2024-08-04] MEDS: EMPAGLIFLOZIN 25MG TABLET PO SCH (17:43)
[2024-08-04] MEDS: IPRATROPIUM/ALBUTEROL 0.5-3(2.5)MG/3ML NEB HHN SCH (20:25)
[2024-08-04] MEDS: GABAPENTIN 300MG CAPSULE PO SCH (22:05)
[2024-08-05] VITALS (9 sets, daily range): BP systolic 121–161; BP diastolic 67–95; PULSE 77–89; RESP 16–22; TEMP 36.114–36.6696; O2SAT 95–100
[2024-08-05] MEDS: CLONIDINE 0.1MG TABLET PO PRN (01:08)
[2024-08-05] MEDS: ACETAMINOPHEN 325MG TABLET PO PRN (01:09)
[2024-08-05] MEDS ORDERED: P20 MT (12:27)
[2024-08-06] MEDS ORDERED: EMPAGLIFLOZIN 25MG TABLET PO SCH (09:00)
[2024-08-06] MEDS ORDERED: ATORVASTATIN CALCIUM 40MG TABLET PO SCH (21:00)
== END 2024-08-05 15:12 | disposition home or self-care (01) | DRG 291 ==
LOC: ER 20:38 → 7WST 08-04 01:47 → EDBEDREQTM 08-04 01:53 → EDBEDREQ 08-04 01:53
PROVIDERS: ADMIT Internal Medicine; ATTEND Internal Medicine
DX: I11.0 Hypertensive heart disease with heart failure (principal); I50.23 Acute on chronic systolic (congestive) heart failure; J96.20 Acute and chronic respiratory failure, unspecified whether with hypoxia or hypercapnia; J44.1 Chronic obstructive pulmonary disease with (acute) exacerbation; Z68.41 Body mass index [BMI] 40.0-44.9, adult; E66.9 Obesity, unspecified; E11.9 Type 2 diabetes mellitus without complications; Z99.81 Dependence on supplemental oxygen; Z87.891 Personal history of nicotine dependence; Z79.899 Other long term (current) drug therapy; Z83.3 Family history of diabetes mellitus; Z82.49 Family history of ischemic heart disease and other diseases of the circulatory system
CPT/HCPCS: 36415; 71045; 80048; 80053; 82962; 83880; 84484; 85025; 93005; 94070; 94640; 94664; 98960; 99285; A4663; J1650; J1815; J2919; J2920